=== PATIENT | female | born 1995 | race Native Hawaiian/Other Pacific Islander ===

== ENCOUNTER 2019-08-09 22:54 | Emergency (ER) | payer MEDICAID ==
[~2019-08-09] VITALS: Ht 180.3 cm; Wt 67.1 kg
[2019-08-09 23:23] LABS: Basophils # (auto) 0 uL; Basophils % (auto) 0.4 % (0.0-2.0); Eosinophils # (auto) 0 uL; Eosinophils % (auto) 0.4 % (0.0-7.0); Hemoglobin 13.2 g/dL (12.2-16.2); Lymphocytes % (auto) 22.3 % (10.0-50.0); Monocytes # (auto) 0.6 uL; Monocytes % (auto) 5.7 % (0.0-12.0); Neutrophils % (auto) 71.2 % (37.0-80.0); Nucleated Red Blood Cells % 0.1 %
[2019-08-09 23:25] LABS: Hematocrit 40.8 % (36.0-46.0); Lymphocytes # (auto) 2.4 uL; Mean Corpuscular Hemoglobin 24.9 pg (28.0-32.0); Mean Corpuscular Hgb Conc. 32.5 g/dL (32.0-36.0); Mean Corpuscular Volume 76.8 fL (80.0-100.0); Neutrophils # (auto) 7.6 uL; Platelet Count (auto) 237 10^3/uL (140-450); Red Blood Cells 5.31 10^6/uL (4.0-5.20); White Blood Cell 10.6 10^3/uL (4.4-10.8)
[2019-08-09 23:29] LABS: Red Cell Distribution Width 21.3 % (11.8-14.3)
[2019-08-09 23:41] LABS: BUN/Creatinine Ratio 14.5; Calcium 9.1 mg/dL (8.5-10.1); Potassium 3.6 mmol/L (3.5-5.1)
[2019-08-09 23:46] LABS: Urine Bacteria FEW /hpf (None Seen); Urine Blood 2+ /uL (Negative); Urine Specific Gravity 1.008 (1.001-1.035); Urine Sperm PRESENT /hpf (None Seen); Urine WBC 1 /hpf (0 - 5)
[2019-08-10 02:36] VITALS: BP 128/74
== END 2019-08-10 02:38 | disposition home or self-care (01) ==
LOC: ER 22:58
DX: O20.0 Threatened abortion (principal); Z3A.09 9 weeks gestation of pregnancy
CPT/HCPCS: 36415; 76801; 80048; 81001; 84702; 85025

== ENCOUNTER 2020-02-26 06:00 | Inpatient (IN) | payer MEDICAID ==
[~2020-02-26] VITALS: Ht 30.5 cm; Wt 0.5 kg
[2020-02-26] MEDS ORDERED: LACT. RINGERS/OXYTOCIN 20UNITS 1,000 ML IV SCH (09:03)
[2020-02-26] MEDS ORDERED: DERMOPLAST 60ML BOTTLE TOP PRN (09:15)
[2020-02-26] MEDS ORDERED: LIDOCAINE 2%HCL (LOCAL ANESTH.) INJ 20ML MDV ID ONE (09:15)
[2020-02-26] MEDS ORDERED: PHISODERM TOP SOLN 240ML BTL TOP PRN (09:15)
[2020-02-26] MEDS ORDERED: WITCH HAZEL-GLYCERIN PAD TOP PRN (09:15)
[2020-02-26] MEDS: LACTATED RINGER'S 1,000 ML IV SCH ×2 (09:38→17:01)
[2020-02-26] MEDS: ceFAZolin 1GM/50ML 50 ML IV SCH ×2 (09:43→17:42)
[2020-02-26 10:00] LABS: Basophils # (auto) 0 10 ^3/uL (0-0.2); Basophils % (auto) 0.2 % (0.0-2.0); Eosinophils # (auto) 0 10 ^3/uL (0-0.8); Eosinophils % (auto) 0.1 % (0.0-7.0); Hematocrit 40.1 % (36.0-46.0); Hemoglobin 13.3 g/dL (12.2-16.2); Lymphocytes # (auto) 1.2 10 ^3/uL (0.4-5.4); Lymphocytes % (auto) 19.4 % (10.0-50.0); Mean Corpuscular Hemoglobin 28.4 pg (28.0-32.0); Mean Corpuscular Hgb Conc. 33.3 g/dL (32.0-36.0); Mean Corpuscular Volume 85.5 fL (80.0-100.0); Monocytes # (auto) 0.3 10 ^3/uL (0-1.3); Monocytes % (auto) 4.5 % (0.0-12.0); Neutrophils # (auto) 4.8 10 ^3/uL (1.6-8.6); Neutrophils % (auto) 75.8 % (37.0-80.0); Nucleated Red Blood Cells % 0.1 %; Platelet Count (auto) 180 10^3/uL (140-450); Red Blood Cells 4.69 10^6/uL (4.0-5.20); Red Cell Distribution Width 14.1 % (11.8-14.3); White Blood Cell 6.4 10^3/uL (4.4-10.8)
[2020-02-26 10:02] LABS: Urine WBC None Seen /hpf (0 - 5)
[2020-02-26 10:13] LABS: Urine Bacteria NONE SEEN /hpf (None Seen); Urine Blood Negative /uL (Negative); Urine Specific Gravity 1.005 (1.001-1.035)
[2020-02-26 10:25] LABS: Albumin 2.9 g/dL (3.4-5.0); Potassium 3.5 mmol/L (3.5-5.1)
[2020-02-26 10:28] LABS: BUN/Creatinine Ratio 20.3; Bilirubin, Total 0.2 mg/dL (0.2-1.0); Total Protein 6.8 g/dL (6.4-8.2); Uric Acid 4.9 mg/dL (2.6-6.0)
[2020-02-26 10:57] LABS: INR 0.91 (0.9-1.15); Partial Thromboplastin Time 26.2 sec (23.0-31.2)
[2020-02-26] MEDS: miSOPROStol 50 MCG per PRE-CUT 1/2 TAB PO PRN ×2 (14:02→18:45)
[2020-02-26] MEDS ORDERED: ePHEDrine SULFATE 50 MG/ML AMP IV ONE ×3 (20:00→21:30)
[2020-02-26] MEDS ORDERED: ROPIVACAINE HCL 100 ML EPI SCH ×3 (20:00→21:30)
[2020-02-26] MEDS ORDERED: fentaNYL CITRATE 100 MCG/2 ML VL IV ONE (20:00)
[2020-02-26] MEDS ORDERED: NALOXONE HCL 0.4 MG/ML VIAL IV ONE ×3 (20:00→21:30)
[2020-02-26] MEDS ORDERED: LIDOCAINE HCL 2 %PF INJ 10ML AMP IJ ONE (20:00)
[2020-02-26] MEDS ORDERED: LACTATED RINGER'S 1,000 ML IV ONE (20:00)
--- NOTE | 2020-02-27 00:45 | NUR ---
Epidural catheter DC'd using sterile technique. Catheter intact with blue tip visualized, dressing applied.
--- NOTE | 2020-02-27 00:50 | NUR ---
Ambulation: Patient OOB with standby assistance by RN. Patient ambulated to bathroom with steady gait. Patient unable to void at this time. Pericare teaching provided with returned demonstration by patient. Clean gown provided and bed linen changed. Patient ambulated back to bed with steady gait and no distress noted.
[2020-02-27] MEDS ORDERED: LACT. RINGERS/OXYTOCIN 20UNITS 500 ML IV ONE (02:43)
[2020-02-27 02:45] VITALS: BP 121/68
[2020-02-27] MEDS ORDERED: LACT. RINGERS/OXYTOCIN 20UNITS 1,000 ML IV SCH (03:43)
[2020-02-27 04:06] LABS: RPR Non Reactive (Non Reactive)
[2020-02-27] MEDS ORDERED: PREN-96 PO (04:07)
[2020-02-27 07:10] VITALS: BP 115/71
--- NOTE | 2020-02-27 09:30 | NUR ---
INFANT SKIN TO SKIN , INITIATED. BONDING WELL.
[2020-02-27] MEDS: DOCUSATE CALCIUM 240 MG CAP PO SCH (09:51)
[2020-02-27] MEDS: IBUPROFEN 600 MG TAB PO PRN ×2 (09:51→18:01)
[2020-02-27 11:10] VITALS: BP 113/68
[2020-02-27 15:15] VITALS: BP 100/56
[2020-02-27 19:00] VITALS: BP 123/76
[2020-02-27 23:30] VITALS: BP 127/73
[2020-02-28 02:30] VITALS: BP 114/58
[2020-02-28] MEDS ORDERED: TETANUS-DIPTH-ACEL PERTUSSIS 0.5ML SYR Tdap IM ONE (04:30)
[2020-02-28 06:47] VITALS: BP 123/73
[2020-02-28] MEDS: DOCUSATE CALCIUM 240 MG CAP PO SCH (09:29)
[2020-02-28] MEDS: IBUPROFEN 600 MG TAB PO PRN (09:29)
--- NOTE | 2020-02-28 10:30 | NUR ---
Discharge: Discharge instructions given as ordered. Pt encouraged to follow up with ART FRAMING MANAGER as instructed. All questions and concerns addressed. Patient verbalized understanding. Medication reconciliation completed and copy given to patient. All required/requested vaccines given and copies of vaccinations given to patient. Patient encouraged to prepare to depart unit.
--- NOTE | 2020-02-28 10:30 | NUR ---
Discharge: Discharge instructions given as ordered. Pt encouraged to follow up with APPLE PICKING SUPERVISOR as instructed. All questions and concerns addressed. Patient verbalized understanding. Medication reconciliation completed and copy given to patient. All required/requested vaccines given and copies of vaccinations given to patient. Patient encouraged to prepare to depart unit.
--- NOTE | 2020-02-28 10:51 | NUR ---
PRESCRIPTION OF MOTRIN 600 MG po Q 6 HR PRN #[id number] CALLED INTO [facility] IN [place] PT MADE AWARE.
[2020-02-28 11:20] VITALS: BP 122/82
--- NOTE | 2020-02-28 11:20 | NUR ---
Discharge: Patient taken to vehicle via wheelchair with all personal belongings, accompanied by staff and family member. No distress noted at time of departure, no adverse changes in status since initial assessment.
== END 2020-02-28 11:20 | disposition home or self-care (01) | DRG 560 ==
LOC: LDRP 06:00 → OBSVTOIN 06:00 → LDRP 08:00
PROVIDERS: ADMIT Specialist; ATTEND Specialist
PROC: 10D07Z6 Extraction of Products of Conception, Vacuum, Via Natural or Artificial Opening (ICD-10-PCS; principal; 2020-02-26)
PROC: 0W8NXZZ Division of Female Perineum, External Approach (ICD-10-PCS; 2020-02-26)
PROC: 3E0P7VZ Introduction of Hormone into Female Reproductive, Via Natural or Artificial Opening (ICD-10-PCS; 2020-02-26)
PROC: 3E0R3BZ Introduction of Anesthetic Agent into Spinal Canal, Percutaneous Approach (ICD-10-PCS; 2020-02-26)
PROC: 00HU33Z Insertion of Infusion Device into Spinal Canal, Percutaneous Approach (ICD-10-PCS; 2020-02-26)
PROC: 0HQ9XZZ Repair Perineum Skin, External Approach (ICD-10-PCS; 2020-02-26)
DX: O69.81X0 Labor and delivery complicated by cord around neck, without compression, not applicable or unspecified (principal); O70.0 First degree perineal laceration during delivery; Z3A.38 38 weeks gestation of pregnancy; Z37.0 Single live birth
CPT/HCPCS: 36415; 59025; 59409; 62282; 80053; 81001; 81002; 84112; 84550; 85025; 85610; 85730; 86592; 86850; 86900; 86901; 90715; 94760; 96360; 96361; 96365; 96366; 96372; G0378; J0690; J2590

== ENCOUNTER 2021-03-08 07:26 | Observation (INO) | payer MEDICAID ==
[~2021-03-08 07:26] MED LIST: PREN-96 PO
== END 2021-03-08 15:10 | disposition home or self-care (01) ==
LOC: LDRP 13:05
PROVIDERS: ADMIT Obstetrics & Gynecology; ATTEND Obstetrics & Gynecology
DX: O69.81X0 Labor and delivery complicated by cord around neck, without compression, not applicable or unspecified (principal); Z3A.33 33 weeks gestation of pregnancy
CPT/HCPCS: 59025; 76818; 81002; 94760; G0378

== ENCOUNTER 2021-03-15 10:31 | Observation (INO) | payer MEDICAID | END 2021-03-15 13:35 | disposition home or self-care (01) | LOC: LDRP 13:00 | PROVIDERS: ADMIT Obstetrics & Gynecology; ATTEND Obstetrics & Gynecology | DX: O69.81X0 Labor and delivery complicated by cord around neck, without compression, not applicable or unspecified (principal); Z3A.34 34 weeks gestation of pregnancy | CPT/HCPCS: 59025; 76818; 81002; 94760; G0378 ==

== ENCOUNTER 2021-03-22 13:08 | Observation (INO) | payer MEDICAID | END 2021-03-22 14:28 | disposition home or self-care (01) | LOC: LDRP 13:08 | PROVIDERS: ADMIT Obstetrics & Gynecology; ATTEND Obstetrics & Gynecology | DX: O69.81X0 Labor and delivery complicated by cord around neck, without compression, not applicable or unspecified (principal); Z3A.35 35 weeks gestation of pregnancy | CPT/HCPCS: 59025; 76818; 81002; 94760; G0378 ==

== ENCOUNTER 2021-04-20 08:10 | Inpatient (IN) | payer MEDICAID ==
[~2021-04-20] VITALS: Ht 180.3 cm; Wt 95.7 kg
[2021-04-20] MEDS ORDERED: LIDOCAINE 2%HCL (LOCAL ANESTH.) INJ 20ML MDV IJ PRN (09:00)
[2021-04-20] MEDS ORDERED: PROMETHAZINE HCL 25 MG/ML 1ML IV PRN (09:00)
[2021-04-20] MEDS ORDERED: BUTORPHANOL TARTRATE 2 MG/1 ML VIAL IV PRN ×2 (09:00)
[2021-04-20] MEDS ORDERED: PHISODERM TOP SOLN 240ML BTL TOP PRN (09:00)
[2021-04-20] MEDS ORDERED: DERMOPLAST 60ML BOTTLE TOP PRN (09:00)
[2021-04-20] MEDS ORDERED: WITCH HAZEL-GLYCERIN PAD TOP PRN (09:00)
[2021-04-20] MEDS ORDERED: LACTATED RINGER'S 1,000 ML IV SCH (09:00)
[2021-04-20] MEDS ORDERED: LACT. RINGERS/OXYTOCIN 20UNITS 500 ML IV ONE ×2 (09:15→09:45)
[2021-04-20] MEDS ORDERED: METHYLERGONOVINE MALEATE 0.2 MG/ML AMP IM ONE (09:15)
[2021-04-20] MEDS ORDERED: PENICILLIN G POT 5MIL/D5 50ML 50 ML IV ONE (09:30)
[2021-04-20 09:37] LABS: Basophils # (auto) 0 10 ^3/uL (0-0.2); Basophils % (auto) 0.2 % (0.0-2.0); Eosinophils # (auto) 0 10 ^3/uL (0-0.8); Eosinophils % (auto) 0.4 % (0.0-7.0); Hematocrit 38.1 % (36.0-46.0); Hemoglobin 12.7 g/dL (12.2-16.2); Lymphocytes # (auto) 1.3 10 ^3/uL (0.4-5.4); Lymphocytes % (auto) 12.3 % (10.0-50.0); Mean Corpuscular Hemoglobin 27.3 pg (28.0-32.0); Mean Corpuscular Hgb Conc. 33.3 g/dL (32.0-36.0); Mean Corpuscular Volume 81.8 fL (80.0-100.0); Monocytes # (auto) 0.5 10 ^3/uL (0-1.3); Monocytes % (auto) 4.8 % (0.0-12.0); Neutrophils % (auto) 82.3 % (37.0-80.0); Red Blood Cells 4.66 10^6/uL (4.0-5.20); Red Cell Distribution Width 14.7 % (11.8-14.3); White Blood Cell 10.9 10^3/uL (4.4-10.8)
[2021-04-20 09:44] LABS: Urine Bacteria FEW /hpf (None Seen); Urine Blood 1+ /uL (Negative); Urine Specific Gravity 1.015 (1.001-1.035); Urine WBC 2 /hpf (0 - 5)
[2021-04-20 09:57] LABS: Amphetamine Screen, Urine NEGATIVE (NEGATIVE); Barbiturate Scree,Urine NEGATIVE (NEGATIVE); Benzodiazephine Screen, Urine NEGATIVE (NEGATIVE); Cannabinoid Screen, Urine NEGATIVE (NEGATIVE); Cocaine Screen, Urine NEGATIVE (NEGATIVE); Opiate Scree,Urine NEGATIVE (NEGATIVE); Phencyclidine Screen, Urine NEGATIVE (NEGATIVE)
[2021-04-20 09:57] LABS: Albumin 2.8 g/dL (3.4-5.0); Calcium 8.8 mg/dL (8.5-10.1); Potassium 3.6 mmol/L (3.5-5.1)
[2021-04-20 10:01] LABS: BUN/Creatinine Ratio 14.8; Bilirubin, Total 0.3 mg/dL (0.2-1.0); Total Protein 6.6 g/dL (6.4-8.2)
[2021-04-20 10:25] LABS: Alcohol, Urine < 3.0 mg/dL (0-10)
[2021-04-20 10:31] LABS: INR 0.97 (0.9-1.15); Partial Thromboplastin Time 27.6 sec (23.6-33.0)
[2021-04-20] MEDS ORDERED: LACTATED RINGER'S 1,000 ML IV ONE (11:15)
[2021-04-20] MEDS ORDERED: NALOXONE HCL 0.4 MG/ML VIAL IV ONE ×2 (11:15→11:30)
[2021-04-20] MEDS ORDERED: ROPIVACAINE HCL 200 ML EPI SCH ×2 (11:15→11:45)
[2021-04-20] MEDS ORDERED: ePHEDrine SULFATE 50 MG/ML AMP IV ONE ×2 (11:15→11:30)
[2021-04-20] MEDS ORDERED: LIDOCAINE HCL 2 %PF INJ 10ML AMP IJ ONE ×2 (11:25→11:30)
[2021-04-20] MEDS ORDERED: ePHEDrine SULFATE 50 MG/ML AMP ONE (11:25)
[2021-04-20] MEDS ORDERED: PENICILLIN G POTASSIUM 2,500,000 UNITS in D5W 5% 50 ML IV SCH (13:30)
[2021-04-20] MEDS ORDERED: miSOPROStol 100 mcg TAB PR PRN (13:30)
[2021-04-20] MEDS ORDERED: miSOPROStol 100 mcg TAB SL PRN (13:30)
[2021-04-20] MEDS ORDERED: IBUPROFEN 600 MG TAB PO PRN (13:45)
[2021-04-20] MEDS ORDERED: ONDANSETRON ODT 4 MG TAB PO PRN (13:45)
[2021-04-20] MEDS ORDERED: ceFAZolin 2 GM in D5W 5% 100 ML IV ONE (13:45)
[2021-04-20 15:00] VITALS: BP 130/69
[2021-04-20] MEDS: ACETAMINOPHEN 325 MG TAB PO PRN (15:37)
[2021-04-20] MEDS: IBUPROFEN 800 MG TAB PO PRN (17:49)
[2021-04-20 19:15] VITALS: BP 124/59
[2021-04-20] MEDS: ceFAZolin 1GM/50ML 50 ML IV SCH (23:02)
[2021-04-20 23:27] VITALS: BP 129/58
[2021-04-20] MEDS: DOCUSATE SOD 100 MG CAP PO SCH (23:48)
[2021-04-21 03:00] VITALS: BP 104/51
[2021-04-21] MEDS: IBUPROFEN 800 MG TAB PO PRN ×2 (05:26→14:59)
[2021-04-21 06:06] LABS: RPR Non Reactive (Non Reactive)
[2021-04-21] MEDS: ceFAZolin 1GM/50ML 50 ML IV SCH ×2 (06:37→15:01)
[2021-04-21 06:38] VITALS: BP 107/56
[2021-04-21] MEDS: ACETAMINOPHEN 325 MG TAB PO PRN ×2 (07:05→21:11)
[2021-04-21 10:44] VITALS: BP 104/60
[2021-04-21 15:10] VITALS: BP 105/70
[2021-04-21 19:20] VITALS: BP 114/52
[2021-04-21 21:55] VITALS: BP 112/67
[2021-04-21] MEDS: DOCUSATE SOD 100 MG CAP PO SCH (22:00)
== END 2021-04-21 22:16 | disposition home or self-care (01) | DRG 560 ==
LOC: LDRP 08:10 → OBSVTOIN 08:54 → LDRP 09:00
PROVIDERS: ADMIT Obstetrics & Gynecology; ATTEND Obstetrics & Gynecology
PROC: 0KQM0ZZ Repair Perineum Muscle, Open Approach (ICD-10-PCS; principal; 2021-04-20)
PROC: 10E0XZZ Delivery of Products of Conception, External Approach (ICD-10-PCS; 2021-04-20)
PROC: 0W8NXZZ Division of Female Perineum, External Approach (ICD-10-PCS; 2021-04-20)
PROC: 3E0R3BZ Introduction of Anesthetic Agent into Spinal Canal, Percutaneous Approach (ICD-10-PCS; 2021-04-20)
PROC: 00HU33Z Insertion of Infusion Device into Spinal Canal, Percutaneous Approach (ICD-10-PCS; 2021-04-20)
DX: O70.1 Second degree perineal laceration during delivery (principal); Z37.0 Single live birth; Z20.822 Contact with and (suspected) exposure to COVID-19; Z3A.39 39 weeks gestation of pregnancy
CPT/HCPCS: 36415; 59025; 59409; 62282; 80053; 80307; 81001; 85025; 85610; 85730; 86592; 86850; 86900; 86901; 87426; 94760; 96360; 96361; 96365; 96366; 96372; G0378; J0690; J2540; J2590; J7060

== ENCOUNTER 2021-04-22 19:39 | Emergency (ER) | payer MEDICAID ==
[~2021-04-22] VITALS: Ht 180.3 cm; Wt 108.9 kg
[2021-04-22 19:43] VITALS: BP 123/76
== END 2021-04-22 23:17 | disposition left against medical advice (07) ==
LOC: ER 19:43
DX: R51.9 Headache, unspecified (principal); R11.0 Nausea; Z53.21 Procedure and treatment not carried out due to patient leaving prior to being seen by health care provider